=== PATIENT | male | born 1930 | race Caucasian/White ===

== ENCOUNTER 2018-02-14 13:49 | Inpatient (IN) | payer OTHER ==
[2018-02-14 14:16] LABS: ADD MAN DIFF? NO
[2018-02-14 14:21] LABS: BASOPHILS % 0.1 % (0.0-2.0); HEMATOCRIT 33.7 % (42.0-52.0); HEMOGLOBIN 11.6 g/dl (14.0-18.0); IMMATURE GRANS #M 0.03 10^3/ul; IMMATURE GRANS % (M) 0.4 %; LYMPHOCYTES # 0.6 10^3/ul (0.8-2.9); LYMPHOCYTES % 8.5 % (15.0-51.0); MEAN CORPUSCULAR HEMOGLOBIN 30.1 pg (29.0-33.0); MEAN CORPUSCULAR HGB CONC 34.4 g/dl (32.0-37.0); MEAN CORPUSCULAR VOLUME 87.3 fl (82.0-101.0); MEAN PLATELET VOLUME 9.9 fl (7.4-10.4); MONOCYTE # 0.5 10^3/ul (0.3-0.9); MONOCYTES % 6.9 % (0.0-11.0); NEUTROPHILS % 84.1 % (39.0-77.0); PLATELET COUNT 152 10^3/UL (140-415); RED BLOOD COUNT 3.86 10^6/ul (4.70-6.10)
[2018-02-14 14:21] LABS: WHITE BLOOD COUNT 7.1 10^3/ul (4.8-10.8)
[2018-02-14 14:37] LABS: LACTIC ACID 1.7 mmol/L (0.5-2.0)
[2018-02-14 14:38] LABS: ALANINE AMINOTRANSFERASE 29 IU/L (13-69); ALBUMIN 3.9 g/dl (3.3-4.9); ALBUMIN/GLOBULIN RATIO 1.05; ALKALINE PHOSPHATASE 99 IU/L (42-121); ANION GAP 16 (8-16); ASPARTATE AMINO TRANSFERASE 68 IU/L (15-46); BILIRUBIN,INDIRECT 1.4 mg/dl (0-1.1); BILIRUBIN,TOTAL 1.4 mg/dl (0.2-1.3); BLOOD UREA NITROGEN 21 mg/dl (7-20); CALCIUM 8.6 mg/dl (8.4-10.2); CARBON DIOXIDE 19 mmol/L (21-31); CHLORIDE 108 mmol/L (97-110); CREATININE 1.16 mg/dl (0.61-1.24); GLUCOSE 172 mg/dl (70-220); POTASSIUM 3.6 mmol/L (3.5-5.1); SODIUM 139 mmol/L (135-144); TOTAL PROTEIN 7.6 g/dl (6.1-8.1)
[2018-02-14 14:40] LABS: INR 1.06; PROTIME 13.9 Sec (11.9-14.9); PT RATIO 1.1
[2018-02-14 14:41] LABS: PARTIAL THROMBOPLASTIN TIME 33.7 Sec (25.0-35.0)
[2018-02-14] MEDS: ASPIRIN 81 MG TAB PO (15:25)
[2018-02-14] MEDS ORDERED: ENOXAPARIN 80 MG/0.8 ML SYG SC (16:00)
[2018-02-14] MEDS ORDERED: DEXTROSE 5%-0.45% NACL 1,000 ML IV (16:04)
[2018-02-14 16:15] LABS: LACTIC ACID 1.1 mmol/L (0.5-2.0)
[2018-02-14] MEDS ORDERED: MAGNESIUM HYDROXIDE 30ML CUP PO (16:30)
[2018-02-14] MEDS ORDERED: morphine 2 MG INJ IV (16:30)
[2018-02-14] MEDS ORDERED: DOCUSATE SODIUM 100 MG CAP PO (16:30)
[2018-02-14] MEDS ORDERED: BISACODYL (EC) 5 MG TAB PO (16:30)
[2018-02-14] MEDS ORDERED: NACL 0.9% 3 ML SYG IV (16:30)
[2018-02-14] MEDS ORDERED: HYDROCODONE/APAP (5/325) TAB PO (16:30)
[2018-02-14] MEDS ORDERED: NITROGLYCERIN (SL) 0.4 MG TAB SL ×2 (16:30→18:00)
[2018-02-14] MEDS ORDERED: ACETAMINOPHEN 325 MG TAB PO (16:30)
[2018-02-14 16:43] LABS: CREATINE KINASE 1568 IU/L (23-200)
[2018-02-14 16:57] LABS: CK INDEX 0.4
[2018-02-14] MEDS ORDERED: FENTAnyl 50 MCG/ML VIAL (17:04)
[2018-02-14] MEDS ORDERED: HEPARIN 1000 UNITS/ML 10 ML INJ (17:04)
[2018-02-14] MEDS ORDERED: MIDAZOLAM 1 MG/ML 2 ML INJ (17:04)
[2018-02-14] MEDS ORDERED: LIDOCAINE 1% (MDV) 20 ML INJ (17:04)
[2018-02-14] MEDS ORDERED: IODIXANOL LOCM 100 ML BTL (17:04)
[2018-02-14 17:14] LABS: B-TYPE NATRIURETIC PEPTIDE 20700 PG/ML (0-450)
[2018-02-14] MEDS ORDERED: TICAGRELOR 90 MG TABLET (17:37)
[2018-02-14] MEDS ORDERED: IOHEXOL 350MG/ML 50 ML BTL (17:43)
[2018-02-14] MEDS ORDERED: BIVALIRUDIN 250MG /NS 50 ML 50 ML IVPB (17:43)
[2018-02-14] MEDS ORDERED: NITROGLYCERIN (IC) 100 MCG/ML INJ (17:43)
[2018-02-14] MEDS ORDERED: OXYCODONE/ACETAMINOPHEN (5/325) TAB PO (18:00)
[2018-02-14] MEDS: SOD CHLORIDE 0.9% 1,000 ML IV (18:00)
[2018-02-14 19:27] LABS: LACTIC ACID 1.7 mmol/L (0.5-2.0)
[2018-02-14] MEDS ORDERED: ATROPINE 1 MG/10 ML SYRINGE (19:55)
[2018-02-14] MEDS: morphine 2 MG INJ IV (19:59)
[2018-02-14 20:30] LABS: ADD MAN DIFF? NO
[2018-02-14 20:31] LABS: BASOPHILS % 0.2 % (0.0-2.0); HEMATOCRIT 37.1 % (42.0-52.0); HEMOGLOBIN 12.4 g/dl (14.0-18.0); IMMATURE GRANS % (M) 0.7 %; LYMPHOCYTES % 14.8 % (15.0-51.0); MEAN CORPUSCULAR HEMOGLOBIN 29.4 pg (29.0-33.0); MEAN CORPUSCULAR HGB CONC 33.4 g/dl (32.0-37.0); MEAN CORPUSCULAR VOLUME 87.9 fl (82.0-101.0); MEAN PLATELET VOLUME 9.9 fl (7.4-10.4); MONOCYTE # 1.1 10^3/ul (0.3-0.9); MONOCYTES % 8.4 % (0.0-11.0); NEUTROPHIL # 10.3 10^3/ul (1.6-7.5); NEUTROPHILS % 75.9 % (39.0-77.0); PLATELET COUNT 200 10^3/UL (140-415); RED BLOOD COUNT 4.22 10^6/ul (4.70-6.10); RED CELL DISTRIBUTION WIDTH 14.1 % (11.5-14.5)
[2018-02-14 20:31] LABS: WHITE BLOOD COUNT 13.6 10^3/ul (4.8-10.8)
[2018-02-14] MEDS: LORAZEPAM 2 MG INJ IV (20:31)
[2018-02-14] MEDS: LABETALOL HCL 20MG INJ IV (20:32)
[2018-02-14 20:35] LABS: AADO2 Arterial 479.5 mmHg (7.0-24.0); Arterial Base Excess -5.6 mmol/L (-3.0-3); Arterial Blood Gas Oxygen Sat 99.1 mmHG (95.0-100.0); Arterial COHb 0.2 % (0.0-3.0); Arterial Fraction of Oxyhgb 98.6 % (93.0-99.0); Arterial MetHb 0.3 % (0.0-1.5); Arterial Total Hemglobin 13.1 g/dl (12.0-18.0); Arterial pCO2 34.6 mmhg (35-45); MODE MASK - NRB; Site A-Line
[2018-02-14 20:46] LABS: INR 1.28; PROTIME 16.2 Sec (11.9-14.9); PT RATIO 1.3
[2018-02-14 20:47] LABS: PARTIAL THROMBOPLASTIN TIME 60.6 Sec (25.0-35.0)
[2018-02-14 20:48] LABS: ANION GAP 18 (8-16); BLOOD UREA NITROGEN 21 mg/dl (7-20); CALCIUM 8.4 mg/dl (8.4-10.2); CARBON DIOXIDE 19 mmol/L (21-31); CHLORIDE 106 mmol/L (97-110); CREATININE 1.18 mg/dl (0.61-1.24); GLUCOSE 214 mg/dl (70-220); POTASSIUM 3.7 mmol/L (3.5-5.1); SODIUM 139 mmol/L (135-144)
[2018-02-14] MEDS: FUROSEMIDE 20 MG INJ IV (21:08)
[2018-02-14] MEDS: DOCUSATE SODIUM 100 MG CAP PO (22:38)
[2018-02-14] MEDS: ATORVASTATIN 40 MG TAB PO (22:39)
[2018-02-14] MEDS: FAMOTIDINE 20 MG TAB PO (22:39)
[2018-02-14] MEDS: TICAGRELOR 90 MG TABLET PO (22:40)
[2018-02-15] MEDS: ACETAMINOPHEN 325 MG TAB PO ×2 (02:17→17:02)
[2018-02-15] MEDS ORDERED: LEVOFLOXACIN 500MG/D5W (PMX) 100 ML IVPB (02:30)
[2018-02-15 02:39] LABS: ADD MAN DIFF? NO
[2018-02-15 02:42] LABS: ABNORMAL IP MESSAGE 1; HEMOGLOBIN 11.4 g/dl (14.0-18.0); IMMATURE GRANS #M 0.04 10^3/ul; IMMATURE GRANS % (M) 0.4 %; LYMPHOCYTES # 0.5 10^3/ul (0.8-2.9); LYMPHOCYTES % 4.8 % (15.0-51.0); MEAN CORPUSCULAR HEMOGLOBIN 29.2 pg (29.0-33.0); MEAN CORPUSCULAR HGB CONC 33.5 g/dl (32.0-37.0); MEAN PLATELET VOLUME 10.5 fl (7.4-10.4); MONOCYTE # 0.5 10^3/ul (0.3-0.9); MONOCYTES % 4.8 % (0.0-11.0); NEUTROPHIL # 8.9 10^3/ul (1.6-7.5); PLATELET COUNT 174 10^3/UL (140-415); POSITIVE DIFF @See below; RED BLOOD COUNT 3.91 10^6/ul (4.70-6.10); RED CELL DISTRIBUTION WIDTH 14.1 % (11.5-14.5)
[2018-02-15 02:42] LABS: WHITE BLOOD COUNT 9.8 10^3/ul (4.8-10.8)
[2018-02-15 03:02] LABS: HEMOGLOBIN A1C 6.3 % (0-5.9)
[2018-02-15 03:22] LABS: ALANINE AMINOTRANSFERASE 37 IU/L (13-69); ALBUMIN 3.9 g/dl (3.3-4.9); ALBUMIN/GLOBULIN RATIO 1.14; ALKALINE PHOSPHATASE 95 IU/L (42-121); ANION GAP 17 (8-16); ASPARTATE AMINO TRANSFERASE 144 IU/L (15-46); BLOOD UREA NITROGEN 25 mg/dl (7-20); CALCIUM 8.3 mg/dl (8.4-10.2); CARBON DIOXIDE 20 mmol/L (21-31); CHLORIDE 109 mmol/L (97-110); CHOL/HDL RATIO 3.6 RATIO; CHOLESTEROL 146 mg/dl (100-200); CREATININE 1.31 mg/dl (0.61-1.24); GLUCOSE 174 mg/dl (70-220); HDL CHOLESTEROL 40 mg/dl (31-75); LDL CHOLESTEROL,CALCULATED 89 mg/dl; MAGNESIUM 1.7 mg/dl (1.7-2.5); POTASSIUM 3.8 mmol/L (3.5-5.1); SODIUM 142 mmol/L (135-144); TOTAL PROTEIN 7.3 g/dl (6.1-8.1); TRIGLYCERIDES 86 mg/dl (0-149)
[2018-02-15 03:26] LABS: B-TYPE NATRIURETIC PEPTIDE 28400 PG/ML (0-450)
[2018-02-15 03:45] LABS: CREATINE KINASE 5482 IU/L (23-200)
[2018-02-15 04:10] LABS: FREE T4 (FREE THYROXINE) 1.12 ng/dl (0.85-1.93)
[2018-02-15] MEDS: LEVOFLOXACIN 500MG/D5W (PMX) 100 ML IVPB (05:43)
[2018-02-15] MEDS ORDERED: PANTOPRAZOLE 40 MG INJ IV (06:00)
[2018-02-15 07:33] LABS: CK INDEX 0.2; CREATINE KINASE 6089 IU/L (23-200)
[2018-02-15 07:34] LABS: ADD UMIC YES; UR ASCORBIC ACID NEGATIVE (NEGATIVE); UR BILIRUBIN (Dip) NEGATIVE (NEGATIVE); UR BLOOD (Dip) 3+ mg/dL (NEGATIVE); UR CLARITY SLIGHTLY CLOUDY (CLEAR); UR COLOR YELLOW (YELLOW); UR GLUCOSE (Dip) NEGATIVE (NEGATIVE); UR KETONES (Dip) TRACE mg/dL (NEGATIVE); UR LEUKOCYTE ESTERASE (Dip) NEGATIVE Leu/ul (NEGATIVE); UR MUCUS MODERATE /HPF (NONE SEEN); UR NITRITE (Dip) NEGATIVE (NEGATIVE); UR RBC 144 /HPF (0-5); UR SPECIFIC GRAVITY (Dip) 1.048 (1.003-1.030); UR TOTAL PROTEIN (Dip) 2+ mg/dl (NEGATIVE); UR UROBILINOGEN (Dip) NEGATIVE (NEGATIVE); UR WBC 3 /HPF (0-5)
[2018-02-15] MEDS ORDERED: ASPIRIN 81 MG TAB PO (09:00)
[2018-02-15] MEDS: LISINOPRIL 5 MG TAB PO (09:23)
[2018-02-15] MEDS: FAMOTIDINE 20 MG TAB PO ×2 (09:23→20:37)
[2018-02-15] MEDS: DOCUSATE SODIUM 100 MG CAP PO ×2 (09:24→20:29)
[2018-02-15] MEDS: TICAGRELOR 90 MG TABLET PO ×2 (09:25→20:37)
[2018-02-15] MEDS: FUROSEMIDE 20 MG INJ IV (09:26)
[2018-02-15] MEDS: SOD CHLORIDE 0.9% 1,000 ML IV ×3 (09:30→20:12)
[2018-02-15] MEDS: ASPIRIN (EC) 81 MG TAB PO (10:00)
[2018-02-15] MEDS: MAGNESIUM SULFATE 3 GM in DEXTROSE 5% 100 ML IVPB (12:48)
[2018-02-15] MEDS: LORAZEPAM 2 MG INJ IV ×2 (14:32→14:49)
[2018-02-15 15:19] LABS: ADD MAN DIFF? NO
[2018-02-15 15:20] LABS: ABNORMAL IP MESSAGE 1; BASOPHILS % 0.1 % (0.0-2.0); HEMATOCRIT 34.2 % (42.0-52.0); HEMOGLOBIN 11.7 g/dl (14.0-18.0); IMMATURE GRANS #M 0.06 10^3/ul; IMMATURE GRANS % (M) 0.6 %; LYMPHOCYTES # 0.4 10^3/ul (0.8-2.9); MEAN CORPUSCULAR HEMOGLOBIN 30.1 pg (29.0-33.0); MEAN CORPUSCULAR HGB CONC 34.2 g/dl (32.0-37.0); MEAN CORPUSCULAR VOLUME 87.9 fl (82.0-101.0); MEAN PLATELET VOLUME 10.6 fl (7.4-10.4); MONOCYTE # 0.3 10^3/ul (0.3-0.9); MONOCYTES % 3.3 % (0.0-11.0); NEUTROPHIL # 9.6 10^3/ul (1.6-7.5); PLATELET COUNT 151 10^3/UL (140-415); POSITIVE DIFF @See below; RED BLOOD COUNT 3.89 10^6/ul (4.70-6.10); RED CELL DISTRIBUTION WIDTH 14.1 % (11.5-14.5)
[2018-02-15 15:20] LABS: WHITE BLOOD COUNT 10.4 10^3/ul (4.8-10.8)
[2018-02-15] MEDS ORDERED: LEVETIRACETAM 1000 MG (PMX) 100 ML IVPB (15:30)
[2018-02-15 15:39] LABS: ALANINE AMINOTRANSFERASE 59 IU/L (13-69); ALBUMIN 3.9 g/dl (3.3-4.9); ALBUMIN/GLOBULIN RATIO 1.21; ALKALINE PHOSPHATASE 84 IU/L (42-121); ANION GAP 19 (8-16); ASPARTATE AMINO TRANSFERASE 198 IU/L (15-46); BILIRUBIN,INDIRECT 2.3 mg/dl (0-1.1); BILIRUBIN,TOTAL 2.3 mg/dl (0.2-1.3); BLOOD UREA NITROGEN 33 mg/dl (7-20); CALCIUM 8.3 mg/dl (8.4-10.2); CARBON DIOXIDE 19 mmol/L (21-31); CHLORIDE 107 mmol/L (97-110); CREATININE 1.59 mg/dl (0.61-1.24); GLUCOSE 226 mg/dl (70-220); POTASSIUM 3.5 mmol/L (3.5-5.1); SODIUM 141 mmol/L (135-144); TOTAL PROTEIN 7.1 g/dl (6.1-8.1)
[2018-02-15 15:46] LABS: AMMONIA < 9 umol/l (9-30)
[2018-02-15 15:51] LABS: LACTIC ACID 3.3 mmol/L (0.5-2.0)
[2018-02-15] MEDS: PHENYTOIN 1,250 MG in SOD CHLORIDE 0.9% 150 ML IV (15:57)
[2018-02-15 16:12] LABS: CREATINE KINASE 7793 IU/L (23-200)
[2018-02-15] MEDS ORDERED: GLUCAGON 1 MG INJ IM (17:00)
[2018-02-15] MEDS ORDERED: DEXTROSE 50% 50 ML SYRINGE IV ×2 (17:00)
[2018-02-15] MEDS ORDERED: GLUCOSE GEL 15 GRAM TUBE PO ×2 (17:00)
[2018-02-15] MEDS ORDERED: GLUCOSE GEL 15 GRAM TUBE BUCCAL (17:00)
[2018-02-15 17:14] LABS: AADO2 Arterial 100.6 mmHg (7.0-24.0); Allen Test ACCEPTAB; Arterial Base Excess -1.7 mmol/L (-3.0-3); Arterial Blood Gas Oxygen Sat 95.4 mmHG (95.0-100.0); Arterial COHb 0.2 % (0.0-3.0); Arterial HCO3 17.7 mmol/L (22.0-26.0); Arterial MetHb 0.2 % (0.0-1.5); Arterial Total Hemglobin 12.5 g/dl (12.0-18.0); Arterial pCO2 18.6 mmhg (35-45); MODE NASAL CANNULA; Site Left Radial
[2018-02-15] MEDS ORDERED: FENTAnyl (DRIP) 1000 mcg/100mL 100 ML IV (18:00)
[2018-02-15] MEDS ORDERED: NORepinephrine 8MG/250 ML (PMX 250 ML (18:24)
[2018-02-15] MEDS ORDERED: NORepinephrine 8MG/250 ML (PMX 250 ML IV (18:30)
[2018-02-15] MEDS: INSULIN ASPART [NOVOLOG] 3 ML PEN SC (18:52)
[2018-02-15] MEDS ORDERED: SOD CHLORIDE 0.9% 500 ML IV (19:00)
[2018-02-15] MEDS: MIDAZOLAM (DRIP) 50 mg/50 mL 50 ML IV (19:44)
[2018-02-15 19:53] LABS: PHENYTOIN (DILANTIN) 13.8 ug/ml (10.0-20.0)
[2018-02-15] MEDS: LABETALOL HCL 20MG INJ IV (20:11)
[2018-02-15] MEDS: SOD CHLORIDE 0.9% 500 ML IV (20:13)
[2018-02-15] MEDS: FENTAnyl (DRIP) 1000 mcg/100mL 100 ML IV (20:14)
[2018-02-15 20:34] LABS: AADO2 Arterial 179.7 mmHg (7.0-24.0); Allen Test ACCEPTAB; Arterial Base Excess -3.5 mmol/L (-3.0-3); Arterial Blood Gas Oxygen Sat 98.6 mmHG (95.0-100.0); Arterial COHb 0.3 % (0.0-3.0); Arterial Fraction of Oxyhgb 97.9 % (93.0-99.0); Arterial HCO3 18.5 mmol/L (22.0-26.0); Arterial MetHb 0.4 % (0.0-1.5); Arterial pCO2 24.9 mmhg (35-45); MODE VENT - AC; Site Right Radial
[2018-02-15] MEDS: ATORVASTATIN 40 MG TAB PO (20:36)
[2018-02-16] MEDS: INSULIN ASPART [NOVOLOG] 3 ML PEN SC ×3 (00:27→12:00)
[2018-02-16] MEDS: SOD CHLORIDE 0.9% 1,000 ML IV ×2 (00:51→11:43)
[2018-02-16] MEDS: ACCU-CHEK XX (01:29)
[2018-02-16 05:09] LABS: ADD MAN DIFF? NO
[2018-02-16 05:32] LABS: ALANINE AMINOTRANSFERASE 63 IU/L (13-69); ALBUMIN 3.1 g/dl (3.3-4.9); ALBUMIN/GLOBULIN RATIO 1.06; ALKALINE PHOSPHATASE 59 IU/L (42-121); ANION GAP 15 (8-16); ASPARTATE AMINO TRANSFERASE 162 IU/L (15-46); BILIRUBIN,INDIRECT 1.4 mg/dl (0-1.1); BILIRUBIN,TOTAL 1.4 mg/dl (0.2-1.3); BLOOD UREA NITROGEN 47 mg/dl (7-20); CALCIUM 7.3 mg/dl (8.4-10.2); CARBON DIOXIDE 21 mmol/L (21-31); CHLORIDE 112 mmol/L (97-110); GLUCOSE 139 mg/dl (70-220); MAGNESIUM 2.5 mg/dl (1.7-2.5); POTASSIUM 3.5 mmol/L (3.5-5.1); SODIUM 144 mmol/L (135-144)
[2018-02-16 05:33] LABS: PHENYTOIN (DILANTIN) 9.7 ug/ml (10.0-20.0)
[2018-02-16 05:36] LABS: B-TYPE NATRIURETIC PEPTIDE 24600 PG/ML (0-450)
[2018-02-16 05:39] LABS: CK-MB 3.77 ng/ml (0.0-2.4)
[2018-02-16 05:51] LABS: CK INDEX 0.1; CREATINE KINASE 6119 IU/L (23-200)
[2018-02-16] MEDS: LEVOFLOXACIN 500MG/D5W (PMX) 100 ML IVPB (06:04)
[2018-02-16 06:47] LABS: ABNORMAL IP MESSAGE 1; BASOPHILS % 0.1 % (0.0-2.0); HEMOGLOBIN 9.6 g/dl (14.0-18.0); IMMATURE GRANS #M 0.12 10^3/ul; IMMATURE GRANS % (M) 0.8 %; LYMPHOCYTES # 0.8 10^3/ul (0.8-2.9); LYMPHOCYTES % 5.5 % (15.0-51.0); MEAN CORPUSCULAR HGB CONC 33.1 g/dl (32.0-37.0); MEAN CORPUSCULAR VOLUME 90.6 fl (82.0-101.0); MEAN PLATELET VOLUME 11.2 fl (7.4-10.4); MONOCYTE # 1.5 10^3/ul (0.3-0.9); MONOCYTES % 9.9 % (0.0-11.0); NEUTROPHIL # 12.7 10^3/ul (1.6-7.5); NEUTROPHILS % 83.7 % (39.0-77.0); PLATELET COUNT 133 10^3/UL (140-415); POSITIVE DIFF @See below; RED CELL DISTRIBUTION WIDTH 14.6 % (11.5-14.5)
[2018-02-16 06:47] LABS: WHITE BLOOD COUNT 15.2 10^3/ul (4.8-10.8)
[2018-02-16 07:27] LABS: AADO2 Arterial 120.9 mmHg (7.0-24.0); Allen Test ACCEPTAB; Arterial Base Excess -2.8 mmol/L (-3.0-3); Arterial COHb 0.3 % (0.0-3.0); Arterial Fraction of Oxyhgb 97.3 % (93.0-99.0); Arterial HCO3 20.1 mmol/L (22.0-26.0); Arterial MetHb 0.4 % (0.0-1.5); Arterial Total Hemglobin 9.6 g/dl (12.0-18.0); Arterial pCO2 28.2 mmhg (35-45); MODE VENT - AC; Site Right Radial
[2018-02-16] MEDS: PHENYTOIN 500 MG in SOD CHLORIDE 0.9% 100 ML IV (08:36)
[2018-02-16] MEDS: TICAGRELOR 90 MG TABLET PO (08:37)
[2018-02-16] MEDS: DOCUSATE SODIUM 100 MG CAP PO (08:46)
[2018-02-16] MEDS: MIDAZOLAM (DRIP) 50 mg/50 mL 50 ML IV (08:47)
[2018-02-16] MEDS: FAMOTIDINE 20 MG TAB PO (08:47)
[2018-02-16] MEDS: FENTAnyl (DRIP) 1000 mcg/100mL 100 ML IV (08:51)
[2018-02-16] MEDS: ACETYLCYSTEINE 600 MG CAP PO (08:59)
[2018-02-16] MEDS: ASPIRIN 81 MG TAB NGT (08:59)
[2018-02-16 11:30] LABS: ANION GAP 14 (8-16); CARBON DIOXIDE 21 mmol/L (21-31); CHLORIDE 111 mmol/L (97-110); POTASSIUM 3.6 mmol/L (3.5-5.1); SODIUM 142 mmol/L (135-144)
[2018-02-16 11:46] LABS: GAMMA GLUTAMYL TRANSPEPTIDASE 31 IU/L (0-50)
[2018-02-16] MEDS: PHENYTOIN 100 MG INJ IV ×2 (12:58→17:57)
[2018-02-16] MEDS ORDERED: PHENYTOIN 100 MG INJ IV (14:30)
== END 2018-02-16 18:20 | disposition short-term general hospital (02) | DRG 246 ==
LOC: ICU 02-15 11:15 → E/R 13:49 → REC 16:02 → ICU 18:32
PROVIDERS: Internal Medicine
PROC: 027034Z Dilation of Coronary Artery, One Artery with Drug-eluting Intraluminal Device, Percutaneous Approach (ICD-10-PCS; principal; 2018-02-14 16:56)
PROC: 02C03ZZ Extirpation of Matter from Coronary Artery, One Artery, Percutaneous Approach (ICD-10-PCS; 2018-02-14 16:56)
PROC: 4A023N7 Measurement of Cardiac Sampling and Pressure, Left Heart, Percutaneous Approach (ICD-10-PCS; 2018-02-14 16:56)
PROC: B211YZZ Fluoroscopy of Multiple Coronary Arteries using Other Contrast (ICD-10-PCS; 2018-02-14 16:56)
PROC: 05H633Z Insertion of Infusion Device into Left Subclavian Vein, Percutaneous Approach (ICD-10-PCS; 2018-02-14 16:56)
PROC: 0BH17EZ Insertion of Endotracheal Airway into Trachea, Via Natural or Artificial Opening (ICD-10-PCS; 2018-02-14 16:56)
PROC: 5A1935Z Respiratory Ventilation, Less than 24 Consecutive Hours (ICD-10-PCS; 2018-02-14 16:56)
DX: I21.4 Non-ST elevation (NSTEMI) myocardial infarction (principal); I50.23 Acute on chronic systolic (congestive) heart failure; R65.11 Systemic inflammatory response syndrome (SIRS) of non-infectious origin with acute organ dysfunction; J69.0 Pneumonitis due to inhalation of food and vomit; J96.02 Acute respiratory failure with hypercapnia; J96.01 Acute respiratory failure with hypoxia; E87.2 Acidosis; I13.0 Hypertensive heart and chronic kidney disease with heart failure and stage 1 through stage 4 chronic kidney disease, or unspecified chronic kidney disease; M62.82 Rhabdomyolysis; N17.9 Acute kidney failure, unspecified; R57.9 Shock, unspecified; R56.9 Unspecified convulsions; D64.9 Anemia, unspecified; I16.0 Hypertensive urgency; N18.9 Chronic kidney disease, unspecified; R74.8 Abnormal levels of other serum enzymes; R60.0 Localized edema
CPT/HCPCS: 31500; 36415; 36600; 70450; 71045; 80048; 80051; 80053; 80061; 80185; 81001; 82140; 82550; 82553; 82803; 82962; 82977; 83036; 83605; 83735; 83880; 84439; 84443; 84484; 85025; 85610; 85730; 87040; 87081; 87086; 93005; 93306; 93458; 93970; 94002; 94003; 94770; 95819; 99291-25